=== PATIENT | female | born 2000 | race Two or more races ===

== ENCOUNTER 2018-10-02 12:38 | Emergency (ER) | payer OTHER ==
[2018-10-02] MEDS ORDERED: IBUPROFEN 400 MG TABLET PO STA (12:56)
--- NOTE | 2018-10-02 12:56 | ED Physician Documentation ---
PD HPI UPPER EXT INJURY - Stated complaint Stated Complaint: R WRIST INJURY - Chief complaint Chief Complaint: Ext Problem - History obtained from History obtained from: Patient - History of Present Illness Location: Right, Wrist Type of injury: Fall (She fell while snowboarding yesterday and has moderate pain over the dorsal wrist with swelling. No other injuries. No possibility of .) Review of Systems Constitutional: reports: Reviewed and negative Cardiac: reports: Reviewed and negative Respiratory: reports: Reviewed and negative PD PAST MEDICAL HISTORY - Allergies Allergies/Adverse Reactions: Allergies Allergy/AdvReac Type Severity Reaction Status Date / Time No Known Drug Allergies Allergy Verified 10/02/18 12:44 PD ED PE NORMAL - Vitals Vital signs reviewed: Yes - General General: Alert and oriented X 3, No acute distress - Extremities Extremities: Other (Tender over the dorsal right wrist without snuffbox tenderness. She does have limited range of motion due to pain pain, but normal sensation throughout the hand.) - Neuro Neuro: Alert and oriented X 3, Normal speech Results - Vitals Vitals: Vital Signs - 24 hr 10/02/18 12:45 Temperature 36.6 C Heart Rate 83 Respiratory 16 Rate Blood Pressure 123/63 O2 Saturation 98 Oxygen O2 Source Room air - Rads (name of study) 4v R wrist Radiology: EMP read contemporaneously (normal) Departure - Departure Disposition: 01 Home, Self Care Clinical Impression: Right wrist sprain Qualifiers: Encounter type: initial encounter Qualified Code(s): S63.501A - Unspecified sprain of right wrist, initial encounter Condition: Good Record reviewed to determine appropriate education?: Yes Instructions: ED Sprain Wrist Comments: Ibuprofen as needed for pain, [place] Return for new or worsening symptoms. Forms: Activity restrictions
--- NOTE | 2018-10-02 14:29 | XRAY Report ---
Reason: wrist inj Procedure Date: 10/02/2018 Accession Number: [id number] / [id number] Procedure: XR - Wrist 4 View RT CPT Code: FULL RESULT: EXAM: RIGHT WRIST RADIOGRAPHY EXAM DATE: 10/02/2018 02:13 PM. CLINICAL HISTORY: Fall with pain COMPARISON: None. TECHNIQUE: 4 views. FINDINGS: Bones: Normal. No fractures or bone lesions. Joints: Normal. No subluxations. Soft Tissues: Normal. No soft tissue swelling. IMPRESSION: No fracture or subluxation. RADIA
[2018-10-02 14:42] VITALS: BP 117/54
== END 2018-10-02 15:02 | disposition home or self-care (01) ==
LOC: ED 12:38
DX: S63.501A Unspecified sprain of right wrist, initial encounter (principal); V00.311A Fall from snowboard, initial encounter; Y93.23 Activity, snow (alpine) (downhill) skiing, snowboarding, sledding, tobogganing and snow tubing
CPT/HCPCS: 73110; 99283; A9270

== ENCOUNTER 2019-03-08 10:27 | Emergency (ER) | payer OTHER ==
[2019-03-08 10:41] VITALS: BP 134/80
[2019-03-08 12:26] LABS: BILIRUBIN,URINE NEGATIVE (NEGATIVE); GLUCOSE, URINE (UA) NEGATIVE (NEGATIVE); KETONES,URINE (UA) NEGATIVE (NEGATIVE); LEUKOCYTE ESTERASE, URINE TRACE (NEGATIVE); NITRITE,URINE NEGATIVE (NEGATIVE); OCCULT BLOOD,URINE TRACE-LYSE (NEGATIVE); PROTEIN,URINE NEGATIVE (NEGATIVE); UROBILINOGEN,URINE 0.2 (NORMAL) E.U./dL (NORMAL)
[2019-03-08 12:29] LABS: CLARITY,URINE CLEAR (CLEAR)
[2019-03-08 12:30] LABS: HCG UR QUAL NEGATIVE
[2019-03-08] MEDS ORDERED: CHERRY SYRUP 10 ML UDC PO ONE (12:31)
[2019-03-08] MEDS ORDERED: DEXAMETHASONE 10 MG/ML VIAL PO STA (12:31)
--- NOTE | 2019-03-08 12:34 | ED Physician Documentation ---
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 She states that she was out on the ship and is begin to b ecome an issue and the only thing she can think of that she was doing then was on a cleaning detail. She has not injured her back previously and she has not had relief of her pain. She has had persistence and some increase in the pain and she is now come to the emergency department for evaluation. She did try to get in and [place] and was told to come to the emergency department. 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 : None HEENT: None Psych: None Musculoskeletal: None Derm: None - Past Surgical History Past Surgical History: No - Present Medications Home Medications: Ambulatory Orders Medication Instructions Recorded Confirmed Cyclobenzaprine [Flexeril] 10 mg PO TID PRN #20 tablet 03/08/19 Hydrocodone/Acetaminophen 1 - 2 each PO Q6H PRN #14 tablet 03/08/19 [Hydrocodon-Acetaminophen 5-325] - Allergies Allergies/Adverse Reactions: Allergies Allergy/AdvReac Type Severity Reaction Status Date / Time No Known Drug Allergies Allergy Verified 03/08/19 10:41 - Social History Does the pt smoke?: No Smoking Status: Never smoker Does the pt drink ETOH?: No Does the pt have substance abuse?: No - Immunizations Immunizations are current?: Yes PD ED PE NORMAL - Vitals Vital signs reviewed: Yes (hypertensive ) - General General: Alert and oriented X 3, No acute distress, Well developed/nourished - HEENT HEENT: Atraumatic, PERRL, EOMI - Respiratory Respiratory: No respiratory distress - Back Back: No CVA TTP, No spinal TTP, Other (There is paraspinous muscle tenderness especially to the right lower lumbar paraspinous muscles. 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, No motor deficit, No sensory deficit, Normal speech Eye Opening: Spontaneous Motor: Obeys Commands Verbal: Oriented GCS Score: 15 - Psych Psych: Normal mood, Normal affect Results - Vitals Vitals: Vital Signs - 24 hr 03/08/19 10:39 Temperature 36.4 C L Heart Rate 84 Respiratory 16 Rate Blood Pressure 134/80 H O2 Saturation 99 Oxygen O2 Source Room air - Labs Labs: Laboratory Tests 03/08/19 03/08/19 12:18 12:18 Urine Color YELLOW Urine Clarity CLEAR Urine pH 6.0 Ur Specific [place] 1.020 1.020 Urine Protein NEGATIVE Urine Glucose (UA) NEGATIVE Urine Ketones NEGATIVE Urine Occult Blood TRACE-LYSE Urine Nitrite NEGATIVE Urine Bilirubin NEGATIVE Urine Urobilinogen 0.2 (NORMAL) Ur Leukocyte Esterase TRACE H Ur Microscopic Review INDICATED Urine Culture Comments Not Reportable Urine HCG, Qual NEGATIVE PD MEDICAL DECISION MAKING - ED course Complexity details: reviewed results, re-evaluated patient, considered differential, d/w patient ED course: 18 y/o female with back pain for the past month has what appears to be an o veruse injury without more focality. She is administered PO decadron and we will place her on a short course of pain medication and muscle relaxant and off work for 3 days Departure - Departure Disposition: 01 Home, Self Care Clinical Impression: Sciatica Qualifiers: Laterality: left Qualified Code(s): M54.32 - Sciatica, left side Condition: Stable Instructions: ED Sciatica, ED Spasm Back No Trauma Follow-Up: [facility] [Provider Group] Prescriptions: Cyclobenzaprine [Flexeril] 10 mg PO TID PRN #20 tablet PRN Reason: Spasms Hydrocodone/Acetaminophen [Hydrocodon-Acetaminophen 5-325] 1 - 2 each PO Q6H PRN #14 tablet PRN Reason: pain Forms: Activity restrictions
[2019-03-08 12:41] LABS: BACTERIA,URINE Rare /HPF (None Seen); RBC,URINE 0-5 /HPF (0-5); SQUAMOUS EPITHELIAL CELL,UR RARE Squamous (<= Few)
--- NOTE | 2019-03-10 05:12 | ED Physician Documentation ---
ED Addendum - Addendum Addendum: 03/10/19 05:11 Chart accessed for culture review. Urine cultures group B beta-hemolytic strep but only 10K-50K CFU/ml. As this is less than 100K and, in reviewing her chart, her symptoms are not s/o UTI, no antibiotic recommended at this time.
== END 2019-03-08 12:44 | disposition home or self-care (01) ==
LOC: ED 10:27
DX: M54.42 Lumbago with sciatica, left side (principal); R82.79 Other abnormal findings on microbiological examination of urine
CPT/HCPCS: 81001; 81025; 87086; 99283; 99284; A9270; 81003